=== PATIENT | male | born 1955 | race Caucasian/White ===

== ENCOUNTER → 2021-04-07 | Day surgery (SDC) | payer MEDICARE, OTHER ==
[2021-04-06 10:48] LABS: BASOPHILS % 0.4 % (0.0-1.0); EOSINOPHILS # (AUTO) 0.1 (0.0-0.4); EOSINOPHILS % 0.8 % (0.0-6.0); HEMATOCRIT 55.3 % (38.2-49.6); HEMOGLOBIN 19.5 g/dL (14.0-18.0); LYMPHOCYTES # (AUTO) 2.2 (1.0-3.2); LYMPHOCYTES % 22.9 % (18.0-39.1); MEAN CORPUSCULAR HEMOGLOBIN 32.1 pg (28-32); MEAN CORPUSCULAR HGB CONC 35.3 g/dL (31-35); MONOCYTES # (AUTO) 1.1 (0.2-0.8); MONOCYTES % 11.6 % (4.4-11.3); NEUTROPHILS # (AUTO) 6.2 (2.1-6.9); NEUTROPHILS % 63.6 % (38.7-80.0); PLATELET COUNT 219 x10e3/uL (140-360); RED BLOOD COUNT 6.08 x10e6/uL (4.3-5.7); RED CELL DISTRIBUTION WIDTH 12.6 % (11.7-14.4)
[2021-04-06 11:08] LABS: ANION GAP 11.7 mmol/L (8-16); CALCIUM 8.9 mg/dL (8.4-10.2); CREATININE, SERUM 0.83 mg/dL (0.72-1.25); POTASSIUM 4.7 mmol/L (3.5-5.1)
[~2021-04-07] MED LIST: BUPIVACAINE 0.25% 30ML SDV ONE; DEXAMETHASONE SOD PHOS INJ 4 MG/ML SDV ONE; FENTANYL CITRATE/PF 100MCG/2 ML INJ ONE; KETOROLAC TROMETHAMINE 30 MG/ML VIAL ONE; LABETALOL HCL 20 ML ONE; LIDOCAINE 2% /EPINEPHRINE 20 ML SDV INJ ONE; LIDOCAINE HCL 2% LOCAL INJ 5 ML SDV VIAL INJ ONE; MIDAZOLAM HCL 2 MG/2 ML VIAL ONE; ONDANSETRON HCL INJ 2MG/ML 2ML 2 MG/ML VIAL ONE; POVIDONE IODINE 0.05% 0.05 % ML PO ONE; PROPOFOL IV EMULSION 10 MG/ML 20 ML VIAL ONE; SEVOFLURANE INHAL SOLN 250 ML PEN BTL ONE
[2021-04-07 14:00] VITALS: BP 151/96
== END | disposition home or self-care (01) ==
LOC: OR 06:15
PROVIDERS: ATTEND Surgery
DX: K40.90 Unilateral inguinal hernia, without obstruction or gangrene, not specified as recurrent (principal); D17.6 Benign lipomatous neoplasm of spermatic cord; I44.4 Left anterior fascicular block; I45.10 Unspecified right bundle-branch block; Z01.810 Encounter for preprocedural cardiovascular examination; Z01.812 Encounter for preprocedural laboratory examination; Z01.818 Encounter for other preprocedural examination; Z20.822 Contact with and (suspected) exposure to COVID-19
CPT/HCPCS: 36415; 49525; 71046; 80048; 85025; 93005; C1781; J1100; J1885; J2001 ×2; J2250; J2405; J2704; J3010; J3490; U0002

== ENCOUNTER 2023-05-26 12:09 | Inpatient (IN) | payer MEDICARE, OTHER ==
[~2023-05-26] VITALS: Ht 180.3 cm; Wt 99.8 kg
[~2023-05-26 12:09] MED LIST changes: -BUPIVACAINE 0.25% 30ML SDV ONE; -DEXAMETHASONE SOD PHOS INJ 4 MG/ML SDV ONE; +DIOVAN80 MG PO; -FENTANYL CITRATE/PF 100MCG/2 ML INJ ONE; -KETOROLAC TROMETHAMINE 30 MG/ML VIAL ONE; -LABETALOL HCL 20 ML ONE; -LIDOCAINE 2% /EPINEPHRINE 20 ML SDV INJ ONE; -LIDOCAINE HCL 2% LOCAL INJ 5 ML SDV VIAL INJ ONE; -MIDAZOLAM HCL 2 MG/2 ML VIAL ONE; -ONDANSETRON HCL INJ 2MG/ML 2ML 2 MG/ML VIAL ONE; -POVIDONE IODINE 0.05% 0.05 % ML PO ONE; -PROPOFOL IV EMULSION 10 MG/ML 20 ML VIAL ONE; -SEVOFLURANE INHAL SOLN 250 ML PEN BTL ONE
[2023-05-26 13:28] LABS: BASOPHILS % 0.2 % (0.0-1.0); HEMATOCRIT 37.2 % (38.2-49.6); LYMPHOCYTES % 8.7 % (18.0-39.1); MEAN CORPUSCULAR HEMOGLOBIN 31.9 pg (28-32); MEAN CORPUSCULAR HGB CONC 34.9 g/dL (31-35); MEAN CORPUSCULAR VOLUME 91.4 fL (81-99); MONOCYTES # (AUTO) 1.9 (0.2-0.8); MONOCYTES % 8.6 % (4.4-11.3); NEUTROPHILS # (AUTO) 18.3 (2.1-6.9); NEUTROPHILS % 81.7 % (38.7-80.0); PLATELET COUNT 274 x10e3/uL (140-360); RED BLOOD COUNT 4.07 x10e6/uL (4.3-5.7); RED CELL DISTRIBUTION WIDTH 12.7 % (11.7-14.4); WHITE BLOOD COUNT 22.39 x10e3/uL (4.8-10.8)
[2023-05-26 13:43] LABS: CLARITY,URINE CLOUDY (CLEAR); COLOR,URINE YELLOW (YELLOW)
[2023-05-26 13:44] LABS: GLUCOSE, URINE 1+ (NEGATIVE); LEUKOCYTE ESTERASE ,URINE LARGE (NEGATIVE); NITRITE,URINE POSITIVE (NEGATIVE); PH,URINE 5 (5 - 7); PROTEIN,URINE DIPSTICK >=300 (NEGATIVE)
[2023-05-26 13:45] LABS: BILIRUBIN,URINE MODERATE (NEGATIVE); KETONES,URINE 1+ (NEGATIVE)
[2023-05-26 13:47] LABS: CALCIUM 8.9 mg/dL (8.4-10.2); CREATININE, SERUM 1.74 mg/dL (0.72-1.25)
[2023-05-26 13:56] LABS: BACTERIA,URINE FEW /HPF; EPITHELIAL CELLS,URINE FEW /LPF; RBC,URINE >50 /HPF (0-5); WBC,URINE (MAN) 21-50 /HPF (0-5)
[2023-05-26] MEDS ORDERED: HYDROCODONE/APAP 5MG-325MG TAB ONE (14:05)
[2023-05-26] MEDS: LACTATED RINGER'S 1,000 ML INJ ONE ×2 (14:05→16:28)
[2023-05-26] MEDS ORDERED: LACTATED RINGER'S 1,000 ML ONE ×2 (14:06→16:29)
[2023-05-26] MEDS: HYDROCODONE/APAP 5MG-325MG TAB PO ONE (14:06)
[2023-05-26 16:05] VITALS: PULSE 102; RESP 18; O2SAT 96
[2023-05-26] MEDS ORDERED: MEROPENEM 1 GM VIAL ONE ×2 (16:28→23:20)
[2023-05-26] MEDS ORDERED: SODIUM CHLORIDE 0.9% 100 ML ONE (16:29)
[2023-05-26] MEDS: MEROPENEM 1 GM in SODIUM CHLORIDE 0.9% 100 ML IV SCH (16:29)
[2023-05-26] MEDS: SODIUM CHLORIDE 0.9% 1000ML 1,000 ML IV SCH (17:22)
[2023-05-26] MEDS ORDERED: SODIUM CHLORIDE 0.9% 1000ML 1,000 ML ONE (17:23)
[2023-05-26] MEDS ORDERED: Morphine 4mg INJECTION 4 MG/ML INJ ONE ×2 (18:27→23:08)
[2023-05-26 18:28] VITALS: BP 133/80; PULSE 102; RESP 17; TEMP 98.1; O2SAT 94
[2023-05-26] MEDS: ONDANSETRON HCL INJ 2MG/ML 2ML 2 MG/ML VIAL IV PRN (18:28)
[2023-05-26] MEDS ORDERED: PANTOPRAZOLE SOD 40 MG TABEC ONE (18:28)
[2023-05-26] MEDS ORDERED: ONDANSETRON HCL INJ 2MG/ML 2ML 2 MG/ML VIAL ONE (18:28)
[2023-05-26] MEDS: Morphine 4mg INJECTION 4 MG/ML INJ IV PRN (18:35)
[2023-05-26] MEDS: PANTOPRAZOLE SOD 40 MG TABEC PO SCH (18:36)
[2023-05-26 20:12] VITALS: BP 98/69; PULSE 115; RESP 19; TEMP 98.4; O2SAT 97
[2023-05-26 23:42] VITALS: BP 105/60; PULSE 107; RESP 20; TEMP 98.4; O2SAT 98
[2023-05-27] VITALS (12 sets, daily range): BP systolic 113–154; BP diastolic 59–85; PULSE 93–104; RESP 16–24; TEMP 97.5–98.6; O2SAT 95–98
[2023-05-27] MEDS ORDERED: MELATONIN 5 MG TABLET PO PRN (01:30)
[2023-05-27] MEDS ORDERED: DIPHENHYDRAMINE HCL 25 MG CAP PO PRN (01:30)
[2023-05-27] MEDS ORDERED: SIMETHICONE 80 MG CHEW PO PRN (01:30)
[2023-05-27] MEDS ORDERED: DEXTROSE 50% SYRINGE 50 ML IV PRN (01:30)
[2023-05-27] MEDS ORDERED: ACETAMINOPHEN 325 MG TAB PO PRN (01:30)
[2023-05-27] MEDS ORDERED: BENZONATATE 100 MG CAP PO PRN (01:30)
[2023-05-27] MEDS ORDERED: ALBUTEROL/IPRATROPIUM 3 ML NEB NEB PRN (01:30)
[2023-05-27] MEDS ORDERED: POTASSIUM CHLORIDE 20 MEQ TAB CR PO PRN (01:30)
[2023-05-27] MEDS ORDERED: LIDOCAINE 4% PATCH TP PRN (01:30)
[2023-05-27] MEDS ORDERED: Morphine 4mg INJECTION 4 MG/ML INJ IV PRN (03:45)
[2023-05-27] MEDS: MIDODRINE 2.5 MG TAB PO SCH ×2 (06:00→21:55)
[2023-05-27 07:13] LABS: BASOPHILS % 0.2 % (0.0-1.0); EOSINOPHILS # (AUTO) 0.1 (0.0-0.4); EOSINOPHILS % 0.6 % (0.0-6.0); HEMATOCRIT 29.3 % (38.2-49.6); HEMOGLOBIN 10.1 g/dL (14.0-18.0); LYMPHOCYTES % 15.4 % (18.0-39.1); MEAN CORPUSCULAR HEMOGLOBIN 31.7 pg (28-32); MEAN CORPUSCULAR HGB CONC 34.5 g/dL (31-35); MEAN CORPUSCULAR VOLUME 91.8 fL (81-99); MONOCYTES # (AUTO) 1.4 (0.2-0.8); MONOCYTES % 10.9 % (4.4-11.3); NEUTROPHILS # (AUTO) 9.5 (2.1-6.9); NEUTROPHILS % 71.9 % (38.7-80.0); PLATELET COUNT 188 x10e3/uL (140-360); RED BLOOD COUNT 3.19 x10e6/uL (4.3-5.7); RED CELL DISTRIBUTION WIDTH 12.6 % (11.7-14.4); WHITE BLOOD COUNT 13.25 x10e3/uL (4.8-10.8)
[2023-05-27 07:52] LABS: ANION GAP 14.9 mmol/L (8-16); CALCIUM 8.1 mg/dL (8.4-10.2); CREATININE, SERUM 1.47 mg/dL (0.72-1.25); POTASSIUM 3.9 mmol/L (3.5-5.1)
[2023-05-27] MEDS: TRAMADOL HCL 50 MG TAB PO PRN (10:17)
[2023-05-27] MEDS: DOCUSATE SODIUM 100 MG CAP PO PRN (10:19)
[2023-05-27] MEDS ORDERED: MEROPENEM 1 GM VIAL ONE (14:04)
[2023-05-27] MEDS ORDERED: MIDODRINE 2.5 MG TAB ONE (14:05)
[2023-05-27] MEDS ORDERED: DOCUSATE SODIUM 100 MG CAP ONE (15:02)
[2023-05-27] MEDS: CITRATE OF MAGNESIA 300ML BOTTLE PO ONE (15:02)
[2023-05-27] MEDS: DOCUSATE SODIUM 100 MG CAP PO ONE (15:02)
[2023-05-27] MEDS ORDERED: SODIUM CHLORIDE 0.9% 1000ML 1,000 ML ONE (15:02)
[2023-05-27] MEDS ORDERED: CITRATE OF MAGNESIA 300ML BOTTLE ONE (15:02)
[2023-05-27] MEDS ORDERED: PANTOPRAZOLE SOD 40 MG TABEC ONE (15:51)
[2023-05-27] MEDS ORDERED: TRAMADOL HCL 50 MG TAB ONE (15:52)
[2023-05-27] MEDS ORDERED: ENOXAPARIN SOD INJ 40 MG/0.4 ML SYR SC ONE (15:53)
[2023-05-27] MEDS: ENOXAPARIN SOD INJ 40 MG/0.4 ML SYR SC SCH (16:50)
[2023-05-28] VITALS (9 sets, daily range): BP systolic 120–137; BP diastolic 71–77; PULSE 77–102; RESP 18–20; TEMP 97.9–98.4; O2SAT 93–98
[2023-05-28] MEDS ORDERED: PANTOPRAZOLE SOD 40 MG TABEC ONE ×2 (07:46→16:08)
[2023-05-28] MEDS ORDERED: PHENAZOPYRIDINE HCL 100 MG TAB ONE ×2 (07:46→15:15)
[2023-05-28] MEDS ORDERED: MEROPENEM 1 GM VIAL ONE ×2 (07:47→15:16)
[2023-05-28] MEDS ORDERED: SODIUM CHLORIDE 0.9% 100 ML ONE ×2 (07:47→15:16)
[2023-05-28] MEDS: PHENAZOPYRIDINE HCL 100 MG TAB PO PRN (07:54)
[2023-05-28 08:09] LABS: BASOPHILS % 0.1 % (0.0-1.0); EOSINOPHILS # (AUTO) 0.1 (0.0-0.4); EOSINOPHILS % 1.3 % (0.0-6.0); HEMATOCRIT 27.8 % (38.2-49.6); HEMOGLOBIN 9.3 g/dL (14.0-18.0); LYMPHOCYTES # (AUTO) 1.9 (1.0-3.2); LYMPHOCYTES % 21.2 % (18.0-39.1); MEAN CORPUSCULAR HEMOGLOBIN 31.5 pg (28-32); MEAN CORPUSCULAR HGB CONC 33.5 g/dL (31-35); MEAN CORPUSCULAR VOLUME 94.2 fL (81-99); MONOCYTES # (AUTO) 0.9 (0.2-0.8); MONOCYTES % 10.5 % (4.4-11.3); NEUTROPHILS # (AUTO) 5.9 (2.1-6.9); NEUTROPHILS % 65.9 % (38.7-80.0); PLATELET COUNT 156 x10e3/uL (140-360); RED BLOOD COUNT 2.95 x10e6/uL (4.3-5.7); RED CELL DISTRIBUTION WIDTH 12.7 % (11.7-14.4); WHITE BLOOD COUNT 8.95 x10e3/uL (4.8-10.8)
[2023-05-28 08:28] LABS: CALCIUM 8.4 mg/dL (8.4-10.2); CREATININE, SERUM 0.79 mg/dL (0.72-1.25)
[2023-05-28] MEDS ORDERED: TRAMADOL HCL 50 MG TAB ONE (11:55)
[2023-05-28] MEDS ORDERED: SODIUM CHLORIDE 0.9% 1000ML 1,000 ML ONE (15:16)
[2023-05-28] MEDS ORDERED: ENOXAPARIN SOD INJ 40 MG/0.4 ML SYR SC ONE (16:18)
[2023-05-29] VITALS: BP 144/84; PULSE 89; RESP 20; TEMP 98.6; O2SAT 96
[2023-05-29 04:00] VITALS: BP 134/76; PULSE 93; RESP 20; TEMP 98.2; O2SAT 95
[2023-05-29 05:38] LABS: BASOPHILS % 0.3 % (0.0-1.0); EOSINOPHILS # (AUTO) 0.1 (0.0-0.4); EOSINOPHILS % 1.8 % (0.0-6.0); HEMATOCRIT 26.4 % (38.2-49.6); HEMOGLOBIN 9.2 g/dL (14.0-18.0); LYMPHOCYTES # (AUTO) 1.6 (1.0-3.2); LYMPHOCYTES % 21.9 % (18.0-39.1); MEAN CORPUSCULAR HEMOGLOBIN 32.2 pg (28-32); MEAN CORPUSCULAR HGB CONC 34.8 g/dL (31-35); MEAN CORPUSCULAR VOLUME 92.3 fL (81-99); MONOCYTES # (AUTO) 0.6 (0.2-0.8); MONOCYTES % 8.5 % (4.4-11.3); NEUTROPHILS # (AUTO) 4.8 (2.1-6.9); PLATELET COUNT 150 x10e3/uL (140-360); RED BLOOD COUNT 2.86 x10e6/uL (4.3-5.7); RED CELL DISTRIBUTION WIDTH 12.3 % (11.7-14.4)
[2023-05-29 06:16] LABS: ANION GAP 11.6 mmol/L (8-16); CALCIUM 8.6 mg/dL (8.4-10.2); CREATININE, SERUM 0.8 mg/dL (0.72-1.25); POTASSIUM 3.6 mmol/L (3.5-5.1)
[2023-05-29 07:03] VITALS: PULSE 92; RESP 20; O2SAT 98
[2023-05-29 08:31] VITALS: BP 151/84; PULSE 85; RESP 19; TEMP 98.2; O2SAT 98
[2023-05-29 08:52] VITALS: BP 151/84; PULSE 85; RESP 19; TEMP 98.2; O2SAT 98
[2023-05-29] MEDS ORDERED: BACLOFEN 10 MG TAB ONE ×2 (09:30→09:33)
[2023-05-29] MEDS ORDERED: SODIUM CHLORIDE 0.9% 100 ML ONE (09:31)
[2023-05-29] MEDS ORDERED: PANTOPRAZOLE SOD 40 MG TABEC ONE ×3 (09:31→09:33)
[2023-05-29] MEDS ORDERED: MEROPENEM 1 GM VIAL ONE ×2 (09:32→09:33)
[2023-05-29] MEDS ORDERED: SODIUM CHLORIDE 0.9% INJ 100 ML BAG ONE (09:33)
[2023-05-29] MEDS ORDERED: SODIUM CHLORIDE 0.9% 1000 ML BAG ONE (09:33)
[2023-05-29] MEDS ORDERED: PHENAZOPYRIDINE HCL 100 MG TAB ONE (09:33)
[2023-05-29] MEDS: BACLOFEN 10 MG TAB PO SCH (10:20)
[2023-05-29] MEDS ORDERED: SODIUM CHLORIDE 0.9% 1000ML 1,000 ML ONE (10:38)
[2023-05-29 12:48] VITALS: BP 144/90; PULSE 82; RESP 19; TEMP 98.2; O2SAT 98
[2023-05-29] MEDS ORDERED: ONDANSETRON HCL 4 MG ORAL DISINTEGRATING TAB PO PRN (13:15)
[2023-05-29] MEDS ORDERED: CEFUROXIME250 MG PO ×2 (13:40→13:42)
[2023-05-29] MEDS ORDERED: PYRIDIUM100 MG PO (13:40)
[2023-05-29] MEDS ORDERED: BACLOFEN10 MG PO (13:48)
== END 2023-05-29 14:52 | disposition home or self-care (01) | DRG 872 ==
LOC: MERGE 13:04 → ER 13:04 → ERHOLD 15:46 → MED/SURG2 18:00
PROVIDERS: ADMIT Internal Medicine; ATTEND Internal Medicine
DX: A41.9 Sepsis, unspecified organism (principal); N39.0 Urinary tract infection, site not specified; N17.9 Acute kidney failure, unspecified; D64.9 Anemia, unspecified; R30.0 Dysuria; R06.6 Hiccough; I10 Essential (primary) hypertension; E86.0 Dehydration; E66.9 Obesity, unspecified; Z68.29 Body mass index [BMI] 29.0-29.9, adult; Z90.49 Acquired absence of other specified parts of digestive tract; Z11.52 Encounter for screening for COVID-19
CPT/HCPCS: 36415; 80048; 81001; 83605; 83735; 85025; 87040; 87086; 94799; 99284; J1650; J2185; J2270; J2405; J7030; J7050; U0002

== ENCOUNTER 2023-05-31 03:34 | Inpatient (IN) | payer MEDICARE, OTHER ==
[~2023-05-31] VITALS: Ht 180.3 cm; Wt 99.8 kg
[2023-05-31] VITALS (8 sets, daily range): BP systolic 145–174; BP diastolic 83–98; PULSE 99–118; RESP 17–19; TEMP 98.2–99.9; O2SAT 95–98
[~2023-05-31 03:34] MED LIST changes: +BACLOFEN10 MG PO; +CEFUROXIME250 MG PO; +PYRIDIUM100 MG PO
[2023-05-31] MEDS: BACLOFEN 10 MG TAB PO SCH (05:59)
[2023-05-31 06:35] LABS: BASOPHILS % 0.3 % (0.0-1.0); EOSINOPHILS # (AUTO) 0.1 (0.0-0.4); EOSINOPHILS % 1.2 % (0.0-6.0); HEMATOCRIT 32.2 % (38.2-49.6); LYMPHOCYTES # (AUTO) 1.7 (1.0-3.2); LYMPHOCYTES % 16.5 % (18.0-39.1); MEAN CORPUSCULAR HGB CONC 34.2 g/dL (31-35); MEAN CORPUSCULAR VOLUME 90.7 fL (81-99); MONOCYTES # (AUTO) 1.3 (0.2-0.8); MONOCYTES % 12.7 % (4.4-11.3); NEUTROPHILS # (AUTO) 6.8 (2.1-6.9); NEUTROPHILS % 67.7 % (38.7-80.0); PLATELET COUNT 237 x10e3/uL (140-360); RED BLOOD COUNT 3.55 x10e6/uL (4.3-5.7); RED CELL DISTRIBUTION WIDTH 12.5 % (11.7-14.4); WHITE BLOOD COUNT 10.05 x10e3/uL (4.8-10.8)
[2023-05-31 07:06] LABS: ALBUMIN 3.6 g/dL (3.5-5.0); ALBUMIN/GLOBULIN RATIO 1.2 (0.8-2.0); ANION GAP 15.4 mmol/L (8-16); BILIRUBIN,TOTAL 3.2 mg/dL (0.2-1.2); CALCIUM 9.3 mg/dL (8.4-10.2); CREATININE, SERUM 0.7 mg/dL (0.72-1.25); TOTAL PROTEIN 6.5 g/dL (6.5-8.1)
[2023-05-31 07:10] LABS: POTASSIUM 3.4 mmol/L (3.5-5.1)
[2023-05-31] MEDS ORDERED: GABAPENTIN 300 MG CAP ONE ×3 (08:25→19:22)
[2023-05-31] MEDS ORDERED: CEFUROXIME AXETIL 250 MG TAB ONE ×2 (08:25→19:22)
[2023-05-31] MEDS ORDERED: VALSARTAN 80 MG TAB ONE ×2 (08:26→19:22)
[2023-05-31 08:29] LABS: COLOR,URINE YELLOW (YELLOW)
[2023-05-31 08:30] LABS: CLARITY,URINE CLEAR (CLEAR); LEUKOCYTE ESTERASE ,URINE NEGATIVE (NEGATIVE); NITRITE,URINE POSITIVE (NEGATIVE); PH,URINE 6 (5 - 7); PROTEIN,URINE DIPSTICK 1+ (NEGATIVE)
[2023-05-31 08:31] LABS: BILIRUBIN,URINE SMALL (NEGATIVE); GLUCOSE, URINE NEGATIVE (NEGATIVE); KETONES,URINE NEGATIVE (NEGATIVE)
[2023-05-31 08:40] LABS: BACTERIA,URINE RARE /HPF; EPITHELIAL CELLS,URINE RARE /LPF
[2023-05-31] MEDS ORDERED: BACLOFEN 10 MG TAB PO SCH (09:00)
[2023-05-31] MEDS: CEFUROXIME AXETIL 250 MG TAB PO SCH (09:59)
[2023-05-31] MEDS: GABAPENTIN 300 MG CAP PO SCH (10:00)
[2023-05-31] MEDS: VALSARTAN 80 MG TAB PO SCH (10:00)
[2023-05-31] MEDS ORDERED: BACLOFEN 10 MG TAB ONE ×2 (13:40→19:22)
[2023-06-01] VITALS (7 sets, daily range): BP systolic 119–145; BP diastolic 75–91; PULSE 101–110; RESP 18–19; TEMP 98.3–99.6; O2SAT 94–98
[2023-06-01 05:58] LABS: BASOPHILS % 0.2 % (0.0-1.0); EOSINOPHILS # (AUTO) 0.1 (0.0-0.4); EOSINOPHILS % 0.6 % (0.0-6.0); LYMPHOCYTES # (AUTO) 1.7 (1.0-3.2); LYMPHOCYTES % 13.4 % (18.0-39.1); MEAN CORPUSCULAR HEMOGLOBIN 32.2 pg (28-32); MEAN CORPUSCULAR HGB CONC 35.5 g/dL (31-35); MEAN CORPUSCULAR VOLUME 90.6 fL (81-99); MONOCYTES # (AUTO) 1.9 (0.2-0.8); NEUTROPHILS # (AUTO) 8.9 (2.1-6.9); NEUTROPHILS % 69.9 % (38.7-80.0); PLATELET COUNT 255 x10e3/uL (140-360); RED BLOOD COUNT 3.42 x10e6/uL (4.3-5.7); RED CELL DISTRIBUTION WIDTH 12.5 % (11.7-14.4); WHITE BLOOD COUNT 12.79 x10e3/uL (4.8-10.8)
[2023-06-01 06:56] LABS: ALBUMIN 3.4 g/dL (3.5-5.0); ALBUMIN/GLOBULIN RATIO 1.1 (0.8-2.0); ANION GAP 14.7 mmol/L (8-16); BILIRUBIN,TOTAL 2.8 mg/dL (0.2-1.2); CALCIUM 9.1 mg/dL (8.4-10.2); CREATININE, SERUM 0.81 mg/dL (0.72-1.25); FERRITIN 274.23 ng/mL (21.81-274.66); MAGNESIUM 1.9 MG/DL (1.3-2.1); POTASSIUM 3.7 mmol/L (3.5-5.1); TOTAL PROTEIN 6.4 g/dL (6.5-8.1)
[2023-06-01] MEDS: SENNOSIDES 8.6 MG TAB PO SCH (11:33)
[2023-06-01] MEDS: DOCUSATE SODIUM 100 MG CAP PO SCH (11:33)
[2023-06-01] MEDS ORDERED: SODIUM CHLORIDE 0.9% 1000ML 1,000 ML ONE (11:33)
[2023-06-01] MEDS: BACLOFEN 10 MG TAB PO SCH (11:33)
[2023-06-01] MEDS: SODIUM CHLORIDE 0.9% 1000ML 1,000 ML IV SCH (11:34)
[2023-06-01] MEDS ORDERED: FERROUS SULFATE 325 MG TAB ONE (11:57)
[2023-06-01] MEDS: FERROUS SULFATE 325 MG TAB PO SCH (11:59)
[2023-06-01] MEDS ORDERED: Morphine 2mg Syringe 2 MG/ML SYR ONE (16:05)
[2023-06-01] MEDS ORDERED: GABAPENTIN 300 MG CAP ONE (16:07)
[2023-06-01] MEDS ORDERED: BACLOFEN 10 MG TAB ONE (16:07)
[2023-06-01] MEDS: Morphine 2mg Syringe 2 MG/ML SYR IV PRN (16:14)
[2023-06-02 00:05] VITALS: BP 133/85; PULSE 108; RESP 18; TEMP 98.5; O2SAT 99
[2023-06-02 03:53] VITALS: BP 133/85; PULSE 108; RESP 18; TEMP 98.5; O2SAT 99
[2023-06-02 04:00] VITALS: BP 129/94; PULSE 104; RESP 18; TEMP 98.3; O2SAT 97
[2023-06-02 05:55] LABS: BASOPHILS % 0.3 % (0.0-1.0); EOSINOPHILS # (AUTO) 0.2 (0.0-0.4); EOSINOPHILS % 1.7 % (0.0-6.0); HEMATOCRIT 31.9 % (38.2-49.6); HEMOGLOBIN 10.6 g/dL (14.0-18.0); LYMPHOCYTES # (AUTO) 1.9 (1.0-3.2); LYMPHOCYTES % 16.8 % (18.0-39.1); MEAN CORPUSCULAR HEMOGLOBIN 31.2 pg (28-32); MEAN CORPUSCULAR HGB CONC 33.2 g/dL (31-35); MEAN CORPUSCULAR VOLUME 93.8 fL (81-99); MONOCYTES # (AUTO) 1.6 (0.2-0.8); MONOCYTES % 13.5 % (4.4-11.3); NEUTROPHILS # (AUTO) 7.7 (2.1-6.9); NEUTROPHILS % 66.4 % (38.7-80.0); PLATELET COUNT 295 x10e3/uL (140-360); RED CELL DISTRIBUTION WIDTH 12.7 % (11.7-14.4); WHITE BLOOD COUNT 11.55 x10e3/uL (4.8-10.8)
[2023-06-02 06:19] LABS: ALBUMIN 3.1 g/dL (3.5-5.0); ANION GAP 14.8 mmol/L (8-16); CALCIUM 8.7 mg/dL (8.4-10.2); CREATININE, SERUM 0.82 mg/dL (0.72-1.25); MAGNESIUM 2.1 MG/DL (1.3-2.1); POTASSIUM 3.8 mmol/L (3.5-5.1); TOTAL PROTEIN 6.2 g/dL (6.5-8.1)
[2023-06-02 08:00] VITALS: BP 152/90; PULSE 96; RESP 17; TEMP 98.4; O2SAT 96
[2023-06-02 08:18] VITALS: BP 152/90; PULSE 96; RESP 17; TEMP 98.4; O2SAT 96
[2023-06-02 11:43] LABS: HEMATOCRIT 30.7 % (38.2-49.6); HEMOGLOBIN 10.6 g/dL (14.0-18.0)
[2023-06-02 13:14] VITALS: BP 139/95; PULSE 99; RESP 18; TEMP 99.2; O2SAT 96
[2023-06-02] MEDS ORDERED: PANTOPRAZOLE SO40 MG PO (13:25)
[2023-06-02] MEDS ORDERED: FEROSUL325 MG PO (13:25)
== END 2023-06-02 15:57 | disposition home or self-care (01) | DRG 920 ==
LOC: MED/SURG2 04:24
PROVIDERS: ADMIT Internal Medicine; ATTEND Internal Medicine
DX: K91.871 Postprocedural hematoma of a digestive system organ or structure following other procedure (principal); N17.9 Acute kidney failure, unspecified; N30.00 Acute cystitis without hematuria; D50.0 Iron deficiency anemia secondary to blood loss (chronic); K21.9 Gastro-esophageal reflux disease without esophagitis; R06.6 Hiccough; E66.9 Obesity, unspecified; I10 Essential (primary) hypertension; D64.9 Anemia, unspecified; Z68.30 Body mass index [BMI] 30.0-30.9, adult; Y83.1 Surgical operation with implant of artificial internal device as the cause of abnormal reaction of the patient, or of later complication, without mention of misadventure at the time of the procedure; Z96.0 Presence of urogenital implants
CPT/HCPCS: 36415; 71045; 80053; 81001; 82607; 82728; 83540; 83735; 84466; 85014; 85018; 85025; 87086; 93005; J2270; J7030

== ENCOUNTER → 2024-07-19 | Day surgery (SDC) | payer MEDICARE, OTHER ==
[2024-07-16 10:06] LABS: BASOPHILS % 0.2 % (0.0-1.0); EOSINOPHILS # (AUTO) 0.1 (0.0-0.4); EOSINOPHILS % 1.6 % (0.0-6.0); HEMATOCRIT 44.4 % (38.2-49.6); HEMOGLOBIN 15.4 g/dL (14.0-18.0); LYMPHOCYTES # (AUTO) 1.5 (1.0-3.2); LYMPHOCYTES % 26.5 % (18.0-39.1); MEAN CORPUSCULAR HEMOGLOBIN 31.2 pg (28-32); MEAN CORPUSCULAR HGB CONC 34.7 g/dL (31-35); MEAN CORPUSCULAR VOLUME 90.1 fL (81-99); MONOCYTES # (AUTO) 0.6 (0.2-0.8); MONOCYTES % 10.8 % (4.4-11.3); NEUTROPHILS # (AUTO) 3.4 (2.1-6.9); NEUTROPHILS % 60.4 % (38.7-80.0); PLATELET COUNT 137 x10e3/uL (140-360); RED BLOOD COUNT 4.93 x10e6/uL (4.3-5.7); RED CELL DISTRIBUTION WIDTH 13.2 % (11.7-14.4); WHITE BLOOD COUNT 5.63 x10e3/uL (4.8-10.8)
[2024-07-16 10:33] LABS: ALBUMIN/GLOBULIN RATIO 1.4 (0.8-2.0); ANION GAP 14.1 mmol/L (8-16); BILIRUBIN,TOTAL 0.9 mg/dL (0.2-1.2); CALCIUM 9.1 mg/dL (8.4-10.2); CREATININE, SERUM 0.84 mg/dL (0.72-1.25); POTASSIUM 4.1 mmol/L (3.5-5.1); TOTAL PROTEIN 6.8 g/dL (6.5-8.1)
[~2024-07-19] MED LIST changes: +CIALIS5 MG PO; +FENTANYL CITRATE/PF 100MCG/2 ML INJ ONE; +FEROSUL325 MG PO; +LIDOCAINE HCL 2% LOCAL INJ 5 ML SDV VIAL INJ ONE; +MELOXICAM7.5 MG PO; +PANTOPRAZOLE SO40 MG PO; +PROPOFOL IV EMULSION 10 MG/ML 20 ML VIAL ONE; +PROPOFOL IV EMULSION 50 ML IV ONE
[2024-07-19] MEDS: LACTATED RINGER'S 1,000 ML ONE (06:24)
[2024-07-19 08:13] VITALS: BP 131/78; PULSE 76; RESP 17; O2SAT 98
== END | disposition home or self-care (01) ==
LOC: OR 05:15
PROVIDERS: ATTEND Surgery
DX: Z12.11 Encounter for screening for malignant neoplasm of colon (principal); D12.3 Benign neoplasm of transverse colon; I10 Essential (primary) hypertension; G89.29 Other chronic pain; M06.9 Rheumatoid arthritis, unspecified; N52.9 Male erectile dysfunction, unspecified; N40.0 Benign prostatic hyperplasia without lower urinary tract symptoms; I45.10 Unspecified right bundle-branch block; Z01.810 Encounter for preprocedural cardiovascular examination; Z01.812 Encounter for preprocedural laboratory examination; Z01.818 Encounter for other preprocedural examination; Z79.1 Long term (current) use of non-steroidal anti-inflammatories (NSAID); Z79.899 Other long term (current) drug therapy
CPT/HCPCS: 36415; 45385; 71046; 80053; 85025; 88305; 93005; J2003; J2704; J3010; J7121

== ENCOUNTER 2024-10-13 16:34 | Inpatient (IN) | payer MEDICARE, OTHER ==
[~2024-10-13] VITALS: Ht 180.3 cm; Wt 89.8 kg
[~2024-10-13 16:34] MED LIST changes: -FENTANYL CITRATE/PF 100MCG/2 ML INJ ONE; -LIDOCAINE HCL 2% LOCAL INJ 5 ML SDV VIAL INJ ONE; -PROPOFOL IV EMULSION 10 MG/ML 20 ML VIAL ONE; -PROPOFOL IV EMULSION 50 ML IV ONE
[2024-10-13 16:42] VITALS: TEMP 98.6
[2024-10-13 17:23] LABS: BASOPHILS % 0.3 % (0.0-1.0); EOSINOPHILS % 2.1 % (0.0-6.0); LYMPHOCYTES % 23.4 % (18.0-39.1); MONOCYTES % 9.3 % (4.4-11.3); NEUTROPHILS % 64.4 % (38.7-80.0); RED CELL DISTRIBUTION WIDTH 12.7 % (11.7-14.4)
[2024-10-13 17:30] VITALS: PULSE 78; RESP 18
[2024-10-13 17:43] LABS: EST GLOMERULAR FILTRATION RATE 97.0 ML/MIN (>=60)
[2024-10-13] MEDS ORDERED: CLONIDINE HCL0.1 MG PO (17:49)
[2024-10-13] MEDS ORDERED: ONDANSETRON HCL INJ 2MG/ML 2ML 2 MG/ML VIAL IV PRN (18:30)
[2024-10-13] MEDS ORDERED: HYDRALAZINE HCL 20 MG/ML VIAL IV PRN (19:45)
[2024-10-13 20:00] VITALS: BP 157/93; PULSE 67; RESP 18; TEMP 97.9; O2SAT 97
[2024-10-13] MEDS: SODIUM CHLORIDE 0.9% 1000ML 1,000 ML IV SCH (22:13)
[2024-10-14 00:09] VITALS: BP 140/87; PULSE 65; RESP 18; TEMP 97.5; O2SAT 96
[2024-10-14] MEDS: AMLODIPINE BESYLATE 5 MG TAB PO ONE ×2 (01:42→01:43)
[2024-10-14 04:53] VITALS: BP 153/85; PULSE 64; RESP 18; TEMP 97.9; O2SAT 97
[2024-10-14 05:50] LABS: BASOPHILS % 0.3 % (0.0-1.0); EOSINOPHILS % 2.9 % (0.0-6.0); LYMPHOCYTES % 24.7 % (18.0-39.1); MONOCYTES % 10.7 % (4.4-11.3); NEUTROPHILS % 61.1 % (38.7-80.0); RED CELL DISTRIBUTION WIDTH 12.8 % (11.7-14.4)
[2024-10-14 06:20] LABS: EST GLOMERULAR FILTRATION RATE 95.0 ML/MIN (>=60)
[2024-10-14] MEDS: VALSARTAN 160 MG TAB PO SCH (07:36)
[2024-10-14] MEDS: AMLODIPINE BESYLATE 5 MG TAB PO SCH (07:36)
[2024-10-14 07:46] VITALS: BP 156/96; PULSE 64; RESP 18; TEMP 97.9; O2SAT 97
[2024-10-14 08:11] VITALS: BP 156/96; PULSE 69; RESP 20; TEMP 98.4; O2SAT 96
[2024-10-14] MEDS ORDERED: GUAIFENESIN 600 MG TAB PO PRN (09:00)
[2024-10-14] MEDS: AZITHROMYCIN 250 MG TAB PO ONE (09:03)
[2024-10-14] MEDS: ACETAMINOPHEN 325 MG TAB PO PRN (09:03)
[2024-10-14] MEDS: FLUTICASONE PROPIONATE NASAL SPRAY NS SCH (11:08)
[2024-10-14] MEDS: PREDNISONE 20 MG TAB PO ONE (11:09)
[2024-10-14 12:52] VITALS: BP 157/99; PULSE 78; RESP 19; TEMP 97.7; O2SAT 98
[2024-10-14 13:34] VITALS: PULSE 79; RESP 18; O2SAT 97
[2024-10-14] MEDS ORDERED: DIOVAN160 MG PO (15:38)
[2024-10-14] MEDS ORDERED: Fluticasone Propionate NS (15:38)
[2024-10-14] MEDS ORDERED: MUCINEX600 MG PO (15:38)
[2024-10-14] MEDS ORDERED: NORVASC5 MG PO (15:38)
[2024-10-14] MEDS ORDERED: Medrol Dosepak PO (15:38)
[2024-10-14] MEDS ORDERED: AZITHROMYCIN250 MG PO (15:38)
[2024-10-15] MEDS ORDERED: PREDNISONE 20 MG TAB PO SCH (09:00)
[2024-10-15] MEDS ORDERED: AZITHROMYCIN 250 MG TAB PO SCH (09:00)
== END 2024-10-14 16:45 | disposition home or self-care (01) | DRG 304 ==
LOC: ER 16:53 → ERHOLD 18:23 → MED/SURG2 19:54
PROVIDERS: ADMIT Internal Medicine; ATTEND Internal Medicine
DX: I16.0 Hypertensive urgency (principal); J18.9 Pneumonia, unspecified organism; I10 Essential (primary) hypertension; R42 Dizziness and giddiness; K21.9 Gastro-esophageal reflux disease without esophagitis; N40.0 Benign prostatic hyperplasia without lower urinary tract symptoms; H53.8 Other visual disturbances; E66.9 Obesity, unspecified; Z68.27 Body mass index [BMI] 27.0-27.9, adult; Z79.51 Long term (current) use of inhaled steroids; Z90.49 Acquired absence of other specified parts of digestive tract; Z82.49 Family history of ischemic heart disease and other diseases of the circulatory system
CPT/HCPCS: 36415; 70450; 70551; 71045; 80053; 82550; 84484; 85025; 93005; 94799; 99284; J7030; J7512